=== PATIENT | female | born 1935 | race Caucasian/White ===

== ENCOUNTER → 2017-01-13 | Outpatient (CLI) | payer MEDICARE, BC ==
--- NOTE | 2017-01-13 09:46 | XR ---
EXAMINATION TYPE: XR chest 2V DATE OF EXAM: 01/13/2017 COMPARISON: NONE HISTORY: Increasing shortness of breath TECHNIQUE: Frontal and lateral views of the chest are obtained. FINDINGS: There is no focal air space opacity, pleural effusion, or pneumothorax seen. Mild pulmona ry hyperinflation is noted. The cardiac silhouette size is within normal limits. The osseous struct ures are intact. Degenerative changes are appreciated of the thoracic spine. IMPRESSION: 1. No acute cardiopulmonary process. 2. Mild pulmonary hyperinflation may relate to underlying emphysematous changes.
== END | disposition home or self-care (01) ==
LOC: RADXRYALE 09:16
PROVIDERS: ATTEND Physician Assistant Medical
DX: J43.9 Emphysema, unspecified (principal); R91.8 Other nonspecific abnormal finding of lung field
CPT/HCPCS: 71020